=== PATIENT | male | born 1995 | race Hispanic/Latino ===

== ENCOUNTER 2017-09-26 12:37 | Emergency (ER) | payer OTHER ==
[~2017-09-26] VITALS: Ht 170.2 cm; Wt 112.0 kg
[2017-09-26] MEDS ORDERED: AUGMENTIN 875-1 EACH PO (14:09)
--- NOTE | 2017-09-26 14:10 | Diagnostic Imaging Report ---
Exam: left forearm AP and lateral. History: CAD by Comparison: None. Findings: There is normal bone mineralization. No acute, displaced fracture or dislocation. Joint spaces preserved. No abnormal soft tissue calcification or soft tissue defect. No soft tissue swelling. Impression: 1. No acute abnormalities. Signed by: Dr. Adria Rdz M.D. on 09/26/2017 2:07 PM
[2017-09-26 14:26] VITALS: BP 162/80
== END 2017-09-26 14:27 | disposition home or self-care (01) ==
LOC: ER 12:37
DX: S50.872A Other superficial bite of left forearm, initial encounter (principal); W55.01XA Bitten by cat, initial encounter; Y92.008 Other place in unspecified non-institutional (private) residence as the place of occurrence of the external cause; I10 Essential (primary) hypertension
CPT/HCPCS: 99283

== ENCOUNTER 2020-08-28 12:30 | Emergency (ER) | payer BC, OTHER ==
[~2020-08-28] VITALS: Ht 170.2 cm; Wt 120.2 kg
[~2020-08-28 12:30] MED LIST: AUGMENTIN 875-1 EACH PO
[2020-08-28] MEDS ORDERED: CASIRIVIMAB/IMDEVIMAB 600 MG in SODIUM CHLORIDE 0.9% 250ML 250 ML IV ONE (13:00)
== END 2020-08-28 17:05 | disposition home or self-care (01) ==
LOC: ER 12:55
DX: U07.1 COVID-19 (principal)
CPT/HCPCS: 71045; 99283; J7050